=== PATIENT | male | born 1990 | race Caucasian/White ===

== ENCOUNTER 2017-05-30 20:29 | Emergency (ER) | payer BC ==
[~2017-05-30] VITALS: Ht 180.3 cm; Wt 63.5 kg
[~2017-05-30 20:29] MED LIST: AMOXICILLIN PO; IBUPROFEN PO; VOLTAREN75 MG PO
[2017-05-30] MEDS ORDERED: NO MEDICATIONS (20:37)
== END 2017-05-30 21:06 | disposition home or self-care (01) ==
LOC: SED 20:29
DX: K02.9 Dental caries, unspecified (principal); F17.200 Nicotine dependence, unspecified, uncomplicated
CPT/HCPCS: 99282